=== PATIENT | female | born 1965 | race Caucasian/White ===

== ENCOUNTER 2017-09-03 08:03 | Day surgery (SDC) | payer OTHER ==
[2017-09-02 17:02] VITALS: BMI 23.6
[2017-09-03 08:19] VITALS: TEMP 98
[2017-09-03] MEDS ORDERED: PROPOFOL 20 ML ONE ×3 (09:10)
[2017-09-03 10:18] VITALS: PULSE 63
[2017-09-03 10:51] VITALS: BP 129/70
--- NOTE | 2017-09-04 16:40 | PATH ---
Surgical Pathology Report Patient Name: REINALDO AHUMADA [facility]. Rec. #: [id number] /Age/Gender: 1965 (Age: 51) / F Account: [id number] Location: [facility]-ENDOSCOPY Taken: 09/03/2017 Received: 09/03/2017 Reported: 09/04/2017 Physicians: Rashad Thomas M.D. Specimen(s) Received A: POLYP RIGHT COLON B: POLYP SIGMOID Clinical History Rule out colon cancer Postoperative diagnosis: Polyp Final Diagnosis A. RIGHT COLON, POLYP, BIOPSY: TUBULAR ADENOMA. B. SIGMOID, POLYP, BIOPSY: TUBULAR ADENOMA. Electronically Signed Yareli Mendoza M.D. Gross Description A. Received in formalin, labeled "polyp right colon" is a henson, irregular portion of soft tissue measuring 0.2 cm. in greatest dimension. The specimen is submitted in toto in one cassette. B. Received in formalin, labeled "polyp sigmoid" is a henson, irregular portion of soft tissue measuring 0.3 cm. in greatest dimension. The specimen is submitted in toto in one cassette. /09/03/2017 [facility]09/03/2017
== END 2017-09-03 11:19 | disposition home or self-care (01) ==
LOC: FASU-ENDO 08:03
PROVIDERS: ATTEND Internal Medicine Gastroenterology
PROC: 0DBN8ZX Excision of Sigmoid Colon, Via Natural or Artificial Opening Endoscopic, Diagnostic (ICD-10-PCS; 2017-09-03)
PROC: 0DBK8ZX Excision of Ascending Colon, Via Natural or Artificial Opening Endoscopic, Diagnostic (ICD-10-PCS; principal; 2017-09-03 09:43)
DX: Z12.11 Encounter for screening for malignant neoplasm of colon (principal); D12.2 Benign neoplasm of ascending colon; D12.5 Benign neoplasm of sigmoid colon
CPT/HCPCS: 84703